=== PATIENT | female | born 1995 | race Caucasian/White ===

== ENCOUNTER 2018-06-10 10:07 | Emergency (ER) | payer OTHER, BC ==
[~2018-06-10] VITALS: Ht 160 cm; Wt 67.6 kg
[2018-06-10] MEDS ORDERED: MOTRIN600 MG PO (11:56)
[2018-06-10] MEDS ORDERED: SKELAXIN800 MG PO (11:56)
[2018-06-10 12:24] VITALS: BP 132/81
== END 2018-06-10 12:25 | disposition home or self-care (01) ==
LOC: EME 10:07
DX: S16.1XXA Strain of muscle, fascia and tendon at neck level, initial encounter (principal); V49.50XA Passenger injured in collision with unspecified motor vehicles in traffic accident, initial encounter; Y92.410 Unspecified street and highway as the place of occurrence of the external cause; Z86.19 Personal history of other infectious and parasitic diseases
CPT/HCPCS: 99281; 99283